=== PATIENT | female | born 1980 | race Caucasian/White ===

== ENCOUNTER 2017-04-10 17:23 | Emergency (ER) | payer OTHER ==
[~2017-04-10] VITALS: Ht 167.6 cm; Wt 100.0 kg
[~2017-04-10 17:23] MED LIST: NO HOME MEDICATIONS
[2017-04-10 17:25] VITALS: BP 111/78; PULSE 72; TEMP 97.9
[2017-04-10] MEDS ORDERED: CLARITIN 1010 MG/TAB PO (17:29)
== END 2017-04-10 17:55 | disposition left against medical advice (07) ==
LOC: COL.ER 17:23
DX: R10.31 Right lower quadrant pain (principal); Z53.21 Procedure and treatment not carried out due to patient leaving prior to being seen by health care provider; R11.2 Nausea with vomiting, unspecified

== ENCOUNTER → 2019-06-23 | Outpatient (CLI) | payer BC ==
[~2019-06-23] MED LIST changes: +CLARITIN 1010 MG/TAB PO
== END ==
LOC: MC.RAD 05-12 07:15
DX: Z12.31 Encounter for screening mammogram for malignant neoplasm of breast (principal)

== ENCOUNTER → 2020-07-26 | Outpatient (CLI) | payer BC | LOC: MC.RAD 13:23 | DX: Z12.31 Encounter for screening mammogram for malignant neoplasm of breast (principal) ==

== ENCOUNTER → 2021-09-19 | Outpatient (CLI) | payer BC | LOC: MC.RAD 12:49 | DX: Z12.31 Encounter for screening mammogram for malignant neoplasm of breast (principal) ==